=== PATIENT | male | born 1965 | race Caucasian/White ===

== ENCOUNTER → 2016-07-03 | Outpatient (CLI) | payer OTHER ==
[~2016-07-03] MED LIST: CARAFATE 1 GM TA1 G1 PO; CRESTOR10 MG PO; LISINOPRIL10 MG PO; LISINOPRIL20 MG PO; NAPROSYN500 MG PO; OMEPRAZOLE40 MG PO; WELLBUTRIN 75 M75 M1 PO; WELLBUTRIN XL300 MG PO; ZOLOFT50 MG PO
== END ==
LOC: RAD 07-02 15:59 → ULTRA 08:43
DX: I77.811 Abdominal aortic ectasia (principal); R10.11 Right upper quadrant pain